=== PATIENT | female | born 1965 | race Caucasian/White ===

== ENCOUNTER 2021-09-02 08:30 | Emergency (ER) | payer BC, SELFPAY ==
[~2021-09-02] VITALS: Ht 162.6 cm; Wt 67.1 kg
[2021-09-02 08:33] VITALS: BP_SYST 158
[2021-09-02 11:15] LABS: BASOPHILS % (AUTO) 0.2 % (0.0-2.0); EOSINOPHILS % (AUTO) 0.2 % (0.0-4.0); HEMATOCRIT 41.5 % (36-48); HEMOGLOBIN 13.7 g/dL (12.0-16.0); LYMPHOCYTES # (AUTO) 2.6 K/uL (1.0-5.5); LYMPHOCYTES % (AUTO) 24.5 % (20.5-51.5); MEAN CORPUSCULAR HEMOGLOBIN 30 pg (27-31); MEAN CORPUSCULAR HGB CONC 33 % (32-36); MEAN CORPUSCULAR VOLUME 89 fL (79.0-98.0); MONOCYTES # (AUTO) 0.4 K/uL (0.0-1.0); MONOCYTES % (AUTO) 3.6 % (1.7-9.3); NEUTROPHILS # (AUTO) 7.6 K/uL (1.8-7.7); NEUTROPHILS % (AUTO) 71.5 % (40.0-70.0); PLATELET COUNT (AUTO) 307 K/uL (130-430); RED BLOOD CELL COUNT(AUTO) 4.64 MIL/uL (4.2-6.2); RED CELL DISTRIBUTION WIDTH 13.3 % (9.0-15.0); WHITE BLOOD COUNT (AUTO) 10.7 K/uL (4.8-10.8)
[2021-09-02 11:44] LABS: CALCIUM 9.7 mg/dL (8.4-11.0); CREATININE 0.74 mg/dL (0.55-1.30); POTASSIUM 4.4 mmol/L (3.5-5.1)
[2021-09-02 11:49] LABS: ALBUMIN 4.4 g/dL (3.4-4.8); TOTAL BILIRUBIN 0.6 mg/dL (0.0-1.0)
--- NOTE | 2021-09-02 14:20 | NUR ---
Dr Soliman evaluating patient in the triage room
[2021-09-02] MEDS ORDERED: CAT1PAT TD (14:39)
[2021-09-02] MEDS ORDERED: IBUP-1969 PO (14:39)
[2021-09-02] MEDS ORDERED: HYDR-3917 PO (14:39)
[2021-09-02 14:54] VITALS: BP_SYST 158
--- NOTE | 2021-09-02 14:59 | NUR ---
Patient given written and verbal discharge instructions and verbalizes understanding. ER MD discussed with patient the results and treatment provided. Patient in stable condition. ID arm band removed. Rx of Clonidine/Hydrocodone /Ibuprofen given. Patient educated on pain management and to follow up with PMD. Pain Scale 2/10. Opportunity for questions provided and answered. Medication side effect fact sheet provided.
== END 2021-09-02 14:59 | disposition home or self-care (01) ==
LOC: SED 08:30
DX: I16.0 Hypertensive urgency (principal); Z79.899 Other long term (current) drug therapy
CPT/HCPCS: 36415; 71045; 80053; 84484; 85025; 93005; 99285

== ENCOUNTER 2022-01-03 05:35 | Inpatient (IN) | payer BC ==
[~2022-01-03] VITALS: Ht 157.5 cm; Wt 64.9 kg
[~2022-01-03 05:35] MED LIST: CAT1PAT TD; HYDR-3917 PO; IBUP-1969 PO
[2022-01-03 06:09] LABS: HCG,QUAL RESULT NEGATIVE (NEGATIVE)
[2022-01-03] MEDS ORDERED: CLINDAMYCIN PHOS 600 MG/ D5W 50 ML PREMIX IV ONE (07:30)
[2022-01-03] MEDS ORDERED: fentaNYL CITRATE 250 MCG/5 ML AMP IV ONE (07:40)
[2022-01-03] MEDS ORDERED: KETOROLAC TROMETHAMINE 30 MG VIAL IVP ONE (07:40)
[2022-01-03] MEDS ORDERED: ONDANSETRON HCL 4 MG/2 ML VIAL IVP ONE (07:40)
[2022-01-03] MEDS ORDERED: SUCCINYLCHOLINE CHLORIDE 20 MG/ML(QUELICIN) IVP ONE (07:40)
[2022-01-03] MEDS ORDERED: PROPOFOL 200MG/ 20ML VIAL (DIPRIVAN) IV ONE (07:40)
[2022-01-03] MEDS ORDERED: METOCLOPRAMIDE HCL 10 MG/2 ML VIAL IVP ONE (07:40)
[2022-01-03] MEDS ORDERED: LR 1,000 ML IV.SOLN IV ONE (07:40)
[2022-01-03] MEDS ORDERED: MIDAZOLAM HCL 5 MG/5 ML VIAL IVP ONE (07:40)
[2022-01-03] MEDS ORDERED: PHENYLEPHRINE HCL 10 MG/ML VIAL (NEOSYNEPHRINE) IV ONE (07:40)
[2022-01-03] MEDS ORDERED: LIDOCAINE 1% 10 MG/ML, 20 ML MDV INJ ONE (07:40)
[2022-01-03] MEDS ORDERED: SEVOFLURANE 15 MIN GAS INH ONE (07:40)
[2022-01-03] MEDS ORDERED: DEXAMETHASONE SOD PHOSPHATE 4 MG/ML VIAL IVP ONE (07:40)
[2022-01-03] MEDS ORDERED: BUPIVACAINE /DEX PF 0.75% SPINAL 2 ML AMP INJ ONE (07:40)
[2022-01-03] MEDS ORDERED: NS IRRIG SOLN 1000 ML IR ONE (07:40)
[2022-01-03] MEDS ORDERED: ePHEDrine sulfate 50 MG/ML VIAL IVP ONE (07:40)
[2022-01-03] MEDS ORDERED: LR 1,000 ML IV SCH (08:45)
[2022-01-03] MEDS ORDERED: HYDROmorphone 1 MG/ML INJ. CARTRIDGE IVP PRN (08:45)
[2022-01-03] MEDS ORDERED: KETOROLAC TROMETHAMINE 30 MG VIAL IVP PRN (08:45)
[2022-01-03] MEDS ORDERED: ONDANSETRON HCL 4 MG/2 ML VIAL IVP PRN ×2 (08:45→11:15)
[2022-01-03] MEDS ORDERED: MEPERIDINE HCL/PF 25 MG/ML DISP.SYRIN IVP PRN (08:45)
[2022-01-03] MEDS ORDERED: NALOXONE HCL 0.4 MG/ML AMP (NARCAN) IVP PRN (08:45)
[2022-01-03] MEDS ORDERED: ONDANSETRON 4 MG ODT TAB PO PRN (11:15)
[2022-01-03] MEDS ORDERED: ACETAMINOPHEN 500 MG TABLET PO PRN (11:30)
[2022-01-03 12:30] VITALS: BP_SYST 116
--- NOTE | 2022-01-03 12:30 | NUR ---
ADMISSION NOTE Received patient from OR via isabela, received report from Rocío FERRERA. Patient admitted with diagnosis of thyroidectomy. Patient oriented to hospital routine, call light, toileting and safety-patient verbalized understanding. Patient stable.
[2022-01-03] MEDS: KCL 20 mEq in D5/0.45NS 1000mL 1,000 ML IV SCH ×2 (13:51→23:42)
[2022-01-03] MEDS: NORMAL SALINE 5 ML DISP.SYRIN IVF SCH ×2 (13:59→22:42)
[2022-01-03 16:30] VITALS: BP_SYST 117
--- NOTE | 2022-01-03 18:43 | NUR ---
Note Patient's concerned with care. Answered all of his questions throughout the shift.
--- NOTE | 2022-01-03 18:44 | NUR ---
Closing Note Patient is laying in bed awake. at bedside. Call light within reach. Safety and fall precautions in place. All needs met. Will endorse care to scene shifter RN.
[2022-01-03] MEDS: CALCIUM 500 MG/TAB PO SCH (22:42)
[2022-01-03 23:10] LABS: ALBUMIN 2.9 g/dL (3.4-4.8); CALCIUM 8.9 mg/dL (8.4-11.0)
[2022-01-04 00:46] VITALS: BP_SYST 114
[2022-01-04] MEDS: NORMAL SALINE 5 ML DISP.SYRIN IVF SCH ×2 (06:00→12:24)
[2022-01-04] MEDS ORDERED: LEVOTHYROXINE SODIUM 0.1 MG TABLET PO SCH (07:00)
--- NOTE | 2022-01-04 07:58 | NUR ---
[facility] SWAB SENT TO LAB.
[2022-01-04] MEDS: CALCIUM 500 MG/TAB PO SCH ×2 (09:03→15:07)
[2022-01-04] MEDS: KCL 20 mEq in D5/0.45NS 1000mL 1,000 ML IV SCH (09:05)
[2022-01-04 09:08] VITALS: BP_SYST 120
[2022-01-04 12:25] VITALS: BP_SYST 114
[2022-01-04 13:19] VITALS: BP_SYST 121
[2022-01-04 15:16] VITALS: BP_SYST 118
[2022-01-04 15:22] LABS: ALBUMIN 3.3 g/dL (3.4-4.8); CALCIUM 8.8 mg/dL (8.4-11.0)
--- NOTE | 2022-01-04 16:13 | NUR ---
Patient discharge home with her . Discharge instruction provided. Discharge medications, doctor follow up appointment and POLINA drain care education with the patient and her .
== END 2022-01-04 16:13 | disposition home or self-care (01) | DRG 830 ==
LOC: SMU 05:35 → SDS 05:35 → SMU 11:23 → SDS 12:06
PROVIDERS: ADMIT Otolaryngology; ATTEND Otolaryngology
PROC: 4A11X4G Monitoring of Peripheral Nervous Electrical Activity, Intraoperative, External Approach (ICD-10-PCS; 2022-01-03)
PROC: 0GTK0ZZ Resection of Thyroid Gland, Open Approach (ICD-10-PCS; principal; 2022-01-03 07:40)
DX: D09.3 Carcinoma in situ of thyroid and other endocrine glands (principal); E04.2 Nontoxic multinodular goiter; Z20.822 Contact with and (suspected) exposure to COVID-19
CPT/HCPCS: 36415; 82040; 82310; 83970; 84703; 87081; 88307; J0330; J1100; J1885; J2001; J2250; J2370; J2405; J2704; J2765; J3010; J3490; J7120; U0003